=== PATIENT | female | born 1990 | race Caucasian/White ===

== ENCOUNTER 2018-02-02 13:09 | Emergency (ER) | payer OTHER ==
[~2018-02-02] VITALS: Ht 157.5 cm; Wt 57.6 kg
[~2018-02-02 13:09] MED LIST: BACTRIM DS TAB1 EACH PO; NOHOMEMEDICATIONS; PROMETHAZINE-C120 ML PO; PYRIDIUM200 MG PO; ZPAK PO
[2018-02-02 14:10] LABS: URINE BILIRUBIN NEGATIVE (Negative); URINE BLOOD 3+ (Negative); URINE CLARITY CLEAR; URINE COLOR YELLOW; URINE GLUCOSE-RANDOM* NEGATIVE (Negative); URINE KETONES NEGATIVE (Negative); URINE LEUKOCYTES TRACE (Negative); URINE NITRITE NEGATIVE (Negative); URINE PROTEIN (DIPSTICK) NEGATIVE (Negative); URINE UROBILINOGEN 0.2 E.U./dl (0.2-1.0)
[2018-02-02 14:18] LABS: ABSOLUTE NEUTROPHILS 6.3 thou/uL (1.4-8.2); BASOPHILS 1.2 % (0.0-2.0); EOSINOPHILS 1.7 % (0.0-3.0); HEMATOCRIT 40.2 % (37.0-47.0); HEMOGLOBIN 13.9 gm/dL (12.0-15.0); LYMPHOCYTES 24.4 % (24.0-44.0); MCH 31.2 pg (26.0-34.0); MCHC 34.5 g/dL (28.0-37.0); MCV 90.4 fL (80.0-100.0); MONOCYTES 6.4 % (1.0-8.0); PLATELET COUNT 274 thou/uL (150-400); POLYS 66.3 % (36.0-66.0); RBC 4.45 mil/uL (4.20-5.00); RDW 12.8 % (10.5-14.5); WBC 9.5 thou/uL (4.0-11.0)
[2018-02-02 14:25] LABS: CREATININE 0.8 mg/dL (0.6-1.0); POTASSIUM 3.9 mmol/L (3.5-5.1)
[2018-02-02 14:27] LABS: SQUAMOUS 4-10 Moderate /LPF (0-3)
[2018-02-02 14:28] LABS: CASTS None Seen /LPF (None Seen); CRYSTALS None Seen /LPF (None Seen); URINE RBC 3-10 Few /HPF (0-2); URINE WBC 0-5 Rare /HPF (0-5)
[2018-02-02 14:29] LABS: BACTERIA 1-9 Few /HPF (None Seen)
== END 2018-02-02 15:52 | disposition home or self-care (01) ==
LOC: ER 13:09
PROVIDERS: Nurse Practitioner
DX: R51 Headache (principal)

== ENCOUNTER 2018-09-29 12:13 | Emergency (ER) | payer OTHER ==
[~2018-09-29] VITALS: Ht 157.5 cm; Wt 54.4 kg
[2018-09-29 12:43] LABS: URINE BILIRUBIN NEGATIVE (Negative); URINE BLOOD 1+ (Negative); URINE CLARITY CLEAR; URINE COLOR YELLOW; URINE GLUCOSE-RANDOM* NEGATIVE (Negative); URINE KETONES NEGATIVE (Negative); URINE LEUKOCYTES 1+ (Negative); URINE NITRITE NEGATIVE (Negative); URINE PROTEIN (DIPSTICK) NEGATIVE (Negative); URINE SPECIFIC GRAVITY <= 1.005 (1.005-1.035); URINE UROBILINOGEN 0.2 E.U./dl (0.2-1.0)
[2018-09-29 12:59] LABS: CASTS None Seen /LPF (None Seen); CRYSTALS None Seen /LPF (None Seen); SQUAMOUS 4-10 Moderate /LPF (0-3)
[2018-09-29 13:00] LABS: BACTERIA 1-9 Few /HPF (None Seen); URINE RBC 0-2 Rare /HPF (0-2); URINE WBC 6-15 Few /HPF (0-5)
[2018-09-29] MEDS ORDERED: MACROBID 100 M100 M1 PO ×3 (14:06→14:18)
[2018-09-29] MEDS ORDERED: ACYCLOVIR 400400 MG PO ×3 (14:06→14:18)
== END 2018-09-29 14:33 | disposition home or self-care (01) ==
LOC: ER 12:13
PROVIDERS: Nurse Practitioner Family
DX: S30.824A Blister (nonthermal) of vagina and vulva, initial encounter (principal); N39.0 Urinary tract infection, site not specified; X58.XXXA Exposure to other specified factors, initial encounter; Y92.89 Other specified places as the place of occurrence of the external cause; Y93.89 Activity, other specified; Y99.8 Other external cause status

== ENCOUNTER 2019-11-01 12:00 | Emergency (ER) | payer OTHER ==
[~2019-11-01] VITALS: Ht 162.6 cm; Wt 55.3 kg
[~2019-11-01 12:00] MED LIST changes: +ACYCLOVIR 400400 MG PO; +MACROBID 100 M100 M1 PO
[2019-11-01] MEDS ORDERED: AMOXICILLIN PO (12:11)
[2019-11-01] MEDS ORDERED: SULFACETAMIDE 115 M1 EA. EYE (12:11)
[2019-11-01 14:19] VITALS: BP 98/55
== END 2019-11-01 14:20 | disposition home or self-care (01) ==
LOC: ER 12:00
DX: R51 Headache (principal); H53.149 Visual discomfort, unspecified; R42 Dizziness and giddiness